=== PATIENT | male | born 1945 | race African-American/Black ===

== ENCOUNTER 2018-07-25 08:22 | Observation (INO) | payer MEDICARE ==
[~2018-07-25] VITALS: Ht 180.3 cm; Wt 126.8 kg
[~2018-07-25 08:22] MED LIST: ACETAMINOPHEN PO; ALLOPURINOL100 MG PO; ALPRAZOLAM0.5 MG PO; ASPIR 8181 MG PO; BACLOFEN10 MG PO; FUROSEMIDE40 MG PO; GABAPENTIN600 MG PO; NIFEDIPINE ER60 MG PO; OMEPRAZOLE40 MG PO; POTASSIUM CHLO20 ME1 PO; REQUIP XL2 MG PO; TERAZOSIN HCL1 MG PO; TRIAMCINOLONE A15 G4 TP; VITAMIN B12 PO; VITAMIN D3 PO; ZYRTEC10 MG PO
--- OUTSIDE RECORDS SUMMARY | 2018-07-25 08:25 | XMS REPORT | Clinical Summary ---
Author Author [facility] [place] [facility] Address Unknown Phone Unavailable Care Team Providers Care Tube Test Technician Name Role Phone Yasmani Dang MD PCP Allergies Comments Active Allergy Reactions Severity Noted Date Penicillins Rash Low 10/18/2016 Medications End Date Status Medication Sig Dispensed Refills Start Date Active allopurinol (ZYLOPRIM) Take 100 mg 0 100 MG tablet by mouth 7 daily. Active ALPRAZolam (XANAX) 0.5 MG Take 0.5 mg 0 tablet by mouth 3 7 (three) times a day. Active baclofen (LIORESAL) 10 MG Take 10 mg by 0 tablet mouth 2 (two) 7 times a day. Active furosemide (LASIX) 40 mg Take 40 mg by 0 tablet mouth 2 (two) 7 times a day. Active HYDROcodone-acetaminophen Take 1 tablet 0 (NORCO) 10-325 mg per by mouth 2 7 tablet (two) times a day as needed. Active KLOR-CON M20 20 mEq CR Take 20 mEq 0 tablet by mouth 7 daily. Active rOPINIRole (REQUIP) 2 MG Take 2 mg by 0 tablet mouth 7 nightly. Active terazosin (HYTRIN) 2 MG Take 2 mg by 0 capsule mouth 7 nightly. Active traZODone (DESYREL) 100 Take 100 mg 0 09/13/ MG tablet by mouth 7 nightly. Active aspirin (ECOTRIN) 81 MG Take 81 mg by 0 enteric coated tablet mouth 2 (two) times a day. Active lansoprazole (PREVACID) Take 30 mg by 0 30 MG capsule mouth daily. Active triamcinolone (KENALOG) Apply 1 0 0.1 % ointment application topically 2 (two) times a day. Active cholecalciferol, vitamin Take 2,000 0 D3, (VITAMIN D3) 1,000 Units by unit capsule mouth daily. Active temazepam (RESTORIL) 7.5 Take 7.5 mg 0 MG capsule by mouth nightly as needed for sleep. Active multivitamin with Take 1 tablet 0 minerals tablet by mouth daily. Active cyanocobalamin 500 MCG Take 500 mcg 0 tablet by mouth daily. Active amitriptyline (ELAVIL) 50 Take 50 mg by 0 MG tablet mouth nightly. Active gabapentin (NEURONTIN) Take 300 mg 0 300 mg capsule by mouth 2 (two) times a day. Active NIFEdipine CC (ADALAT CC) Take 60 mg by 0 60 MG 24 hr tablet mouth daily. Active Problems Problem Noted Date Closed displaced spiral fracture of shaft of left femur 04/18/2017 Encounters Care Team Description Date Type Specialty Roger Fountain MD Enlarged prostate with urinary obstruction (Primary Dx) 06/04/2018 Transcribe Access Orders after 07/24/2017 Family History Medical History Relation Name Comments Heart attack Father Asthma Mother Diabetes Mother Other Mother heart problems Relation Name Status Comments Father unknown Mother Social History Date Tobacco Use Types Packs/Day Years Used Never Smoker Smokeless Tobacco: Never Used Alcohol Use Drinks/Week oz/Week Comments No Sex Assigned at Date Recorded Not on file Industry Job Start Date Occupation Not on file Not on file Not on file Travel End Travel History Travel Start No recent travel history available. Last Filed Vital Signs Not on file Plan of Treatment Health Maintenance Due Date Last Done Comments COLON CANCER SCREENING 06/22/1995 SHINGLES VACCINES (#1) 06/22/1995 65+ PNEUMOCOCCAL VACCINE 2010 (1 of 2 - PCV13) PNEUMOCOCCAL 2010 POLYSACCHARIDE VACCINE AGE 65 AND OVER INFLUENZA VACCINE 11/08/2018 Implants Device Identifier Shelf Expiration Date Model / Serial / Lot Implanted Type Area Manufactur er 06/07/2021 04 013 [id number] / / [id number] 13mm Ti Joby Retro/Antegrade IPM Left: Femur SYNTHES Femoral Nail-Ex/420mm-Sterile - IMPLANT TRAUMA [id number] DEVICES Implanted: 04/19/2017 (Quantity not on file) 08/08/2023 04 005 550S / / [id number] 5.0mm Ti Locking Screw W/T25 IPM Left: Femur SYNTHES Stardrive 60mm F/Im Nail-Ster - IMPLANT TRAUMA [id number] DEVICES Implanted: 04/19/2017 (Quantity not on file) 08/07/2024 04 005 548S / / [id number] 5.0mm Ti Locking Screw W/T25 IPM Left: Femur SYNTHES Stardrive 58mm F/Im Nail-Ster - IMPLANT TRAUMA [id number] DEVICES Implanted: 04/19/2017 (Quantity not on file) Procedures Comments Procedure Name Priority Date/Time Associated Diagnosis US RENAL Routine 07/03/2018 Enlarged prostate with 2:47 PM CDT urinary obstruction US PROSTATE Routine 07/03/2018 Enlarged prostate with 2:46 PM CDT urinary obstruction after 07/24/2017 Results * US Renal (07/03/2018 2:47 PM CDT) Narrative Performed At [facility] CLINICAL HISTORY:N40.1 Benign prostatic hyperplasia with lower urinary tract symptoms, N13.8 Other obstructive and reflux uropathy, ENLARGED PROSTATE COMPARISON:None. IMPRESSION: The right kidney izptubmn33.7 cm in length. The left kidney doaknyiz91.0 cm in length. There is a 3.9 cm cyst in the left kidney. There is no solid mass, stone, or hydronephrosis. Echogenicity is increased, compatible with medical renal disease. Prevoid bladder volume is 111.3 cc. Postvoid volume is 6.9 cc. [id number] Procedure Note Interface, Radiology Results [facility] - 07/03/2018 2:59 PM CDT EXAMINATION: US RENAL CLINICAL HISTORY: N40.1 Benign prostatic hyperplasia with lower urinary tract symptoms, N13.8 Other obstructive and reflux uropathy, ENLARGED PROSTATE COMPARISON: None. IMPRESSION: The right kidney measures 11.7 cm in length. The left kidney measures 12.0 cm in length. There is a 3.9 cm cyst in the left kidney. There is no solid mass, stone, or hydronephrosis. Echogenicity is increased, compatible with medical renal disease. Prevoid bladder volume is 111.3 cc. Postvoid volume is 6.9 cc. [id number] Performing Organization Address City/State/Zipcode Phone Number [facility] [address] [place] [address] * US Prostate (07/03/2018 2:46 PM CDT) Narrative Performed At EXAMINATION:US PROSTATE [facility] CLINICAL HISTORY:N40.1 Benign prostatic hyperplasia with lower urinary tract symptoms, N13.8 Other obstructive and reflux uropathy, N40.1 COMPARISON:None. IMPRESSION: Prostate gland measures 6.0 x 3.9 x 4.6 cm. Volume is 56 cc. Transitional zone is slightly enlarged and heterogeneous compatible with BPH. There is no focal peripheral zone abnormality. Seminal vesicles are sonographically normal. [id number] Procedure Note Hm Interface, Radiology Results Incoming - 07/03/2018 2:58 PM CDT EXAMINATION: US PROSTATE CLINICAL HISTORY: N40.1 Benign prostatic hyperplasia with lower urinary tract symptoms, N13.8 Other obstructive and reflux uropathy, N40.1 COMPARISON: None. IMPRESSION: Prostate gland measures 6.0 x 3.9 x 4.6 cm. Volume is 56 cc. Transitional zone is slightly enlarged and heterogeneous compatible with BPH. There is no focal peripheral zone abnormality. Seminal vesicles are sonographically normal. [id number] Performing Organization Address City/State/Zipcode Phone Number [facility] [address] [place] [address] after 07/24/2017 Insurance Payer Benefit Subscriber ID Type Phone Address Plan / Group MEDICARE MEDICARE xxxxxxxxxxx Medicare [place], [place] PART A AND B Advance Directives Patient has advance care planning documents on file. For more information, abi cavanaugh contact: Sherif Maxwell [address] [place] [address]
[2018-07-25] MEDS ORDERED: HYOSCYAMINE 0.125 MG TAB ONE (08:56)
[2018-07-25] MEDS ORDERED: LEVOFLOXACIN 500MG/D5W 100ML 100 ML IV ONE (08:56)
[2018-07-25] MEDS ORDERED: NORCO 10-325 T1 EACH PO (09:22)
[2018-07-25] MEDS ORDERED: IOPAMIDOL 610MG/1ML 300 MG/ML VIAL IV ONE (09:32)
--- NOTE | 2018-07-25 10:24 | Diagnostic Imaging Report ---
EXAMINATION: PA and lateral views of the chest. COMPARISON: None CLINICAL HISTORY: Preoperative examination for prostate surgery DISCUSSION: The lungs are well-inflated. Linear opacities in the left lung base compatible with subsegmental atelectasis. No airspace consolidation, pleural effusion, or pneumothorax. Tortuous thoracic aorta with otherwise normal cardiomediastinal contour. No acute osseous abnormality. Nodular opacities project over the lung bases on the frontal radiograph, compatible with nipple shadows. IMPRESSION: Subsegmental atelectasis in the left lung base. Otherwise no acute cardiopulmonary abnormality. Signed by: Dr. Payam Madrigal M.D. on 07/25/2018 10:21 AM
[2018-07-25] MEDS ORDERED: FENTANYL CITRATE/PF 100MCG/2 ML INJ ONE ×2 (11:44→14:12)
[2018-07-25] MEDS ORDERED: MORPHINE SULFATE INJ 4 MG/ML INJ 1ML ONE (12:11)
--- OUTSIDE RECORDS SUMMARY | 2018-07-25 12:25 | XMS REPORT | Clinical Summary ---
Author Author [facility] Address Unknown Phone Unavailable Care Team Providers Care Medical Microbiologist Name Role Phone Yasmani Dang MD PCP [...] er 06/07/2021 04 013 [id number] / / [id number] 13mm Ti Joby Retro/Antegrade IPM Left: Femur SYNTHES Femoral Nail-Ex/420mm-Sterile - IMPLANT TRAUMA [id number] DEVICES Implanted: 04/19/2017 (Quantity not on file) 08/08/2023 04 005 550S / / [id number] 5.0mm Ti Locking Screw W/T25 IPM Left: Femur SYNTHES Stardrive 60mm F/Im Nail-Ster - IMPLANT TRAUMA [id number] DEVICES Implanted: 04/19/2017 (Quantity not on file) 08/07/2024 04 005 548S / / [id number] 5.0mm Ti Locking Screw W/T25 IPM Left: Femur SYNTHES Stardrive 58mm F/Im Nail-Ster - IMPLANT TRAUMA [id number] DEVICES Implanted: 04/19/2017 (Quantity not on file) Procedures Comments Procedure Name Priority Date/Time Associated Diagnosis US RENAL Routine 07/03/2018 Enlarged prostate with 2:47 PM CDT urinary obstruction US PROSTATE Routine 07/03/2018 Enlarged prostate with 2:46 PM CDT urinary obstruction after 07/24/2017 Results * US Renal (07/03/2018 2:47 PM CDT) Narrative Performed At [facility] CLINICAL HISTORY:N40.1 Benign prostatic hyperplasia with lower urinary tract symptoms, N13.8 Other obstructive and reflux uropathy, ENLARGED PROSTATE COMPARISON:None. IMPRESSION: The right kidney htzzwdic06.7 cm in length. The left kidney expvpcvc43.0 cm in length. There is a 3.9 cm cyst in the left kidney. There is no solid mass, stone, or hydronephrosis. Echogenicity is increased, compatible with medical renal disease. Prevoid bladder volume is 111.3 cc. Postvoid volume is 6.9 cc. [id number] Procedure Note Interface, Radiology Results [facility] - 07/03/2018 2:59 PM CDT EXAMINATION: US [...] 111.3 cc. Postvoid volume is 6.9 cc. [id number] Performing Organization Address City/State/Zipcode Phone Number [facility] [address] [place] [address] * US Prostate (07/03/2018 2:46 PM CDT) [...] zone abnormality. Seminal vesicles are sonographically normal. [id number] Procedure Note Hm Interface, Radiology Results Incoming [...] zone abnormality. Seminal vesicles are sonographically normal. [id number] Performing Organization Address City/State/Zipcode Phone Number [facility] [address] [place] [address] after 07/24/2017 Insurance Payer Benefit Subscriber ID Type Phone Address Plan / Group MEDICARE MEDICARE xxxxxxxxxxx Medicare [place], [place] PART A AND B Advance Directives Patient has advance care planning documents on file. For more information, abi cavanaugh contact: Sherif Maxwell [address] [place] [address]
--- OUTSIDE RECORDS SUMMARY | 2018-07-25 12:25 | XMS REPORT ---
Author Author [facility] Address Unknown Phone Unavailable Care Team Providers Care Podiatric Aide Name Role Phone Chasity TREVINO Unavailable Unavailable Problems This patient has no known problems. Allergies, Adverse Reactions, Alerts This patient has no known allergies or adverse reactions. Medications This patient has no known medications. Results Test Description Test Time Test Comments Text Results Atomic Results Result Comments CHEST 2 VIEWS 2018-07-25 10:19:00 [place] [address] Patient Name: BRIANNA MONTOYA JR MR #: [id number] : 1945 Age/Sex: 73/M Req #: [id number] [facility] [place]: Ordered by: KAREN TREVINO MD Report #: [id number] Location: OR Room/Bed: Procedure: [id number] DX/CHEST 2 VIEWS Exam Date: 07/25/18 Exam Time: 1000 REPORT STATUS: Signed EXAMINATION: PA and lateral views of the chest. COMPARISON: None CLINICAL HISTORY: Preoperative examination for prostate surgery DISCUSSION: The lungs are well-inflated. Linear opacities in the left lung base compatible with subsegmental atelectasis. No airspace consolidation, pleural effusion, or pneumothorax. Tortuous thoracic aorta with otherwise normal cardiomediastinal contour. No acute osseous abnormality. Nodular opacities project over the lung bases on the frontal radiograph, compatible with nipple shadows. IMPRESSION: Subsegmental atelectasis in the left lung base. Otherwise no acute cardiopulmonary abnormality. Signed by: Dr. Trung Madrigal M.D. on 07/25/2018 10:21 AM Dictated By: TRUNG MADRIGAL MD 1021 Transcribed By: DEISI on 07/25/18 1021 COPY TO: KAREN TREVINO MD
[2018-07-25] MEDS ORDERED: HYDROMORPHONE 2MG/ML 2 MG/ML ML ONE (12:30)
[2018-07-25 14:39] VITALS: BP 142/81
[2018-07-25 15:16] VITALS: BP 135/84
[2018-07-25 15:48] VITALS: BP 135/84
--- NOTE | 2018-07-25 15:57 | NUR ---
SOCIAL WORK INITIAL ASSESSMENT Wellness Nurse to bedside to discuss plan of care with patient/family. CM/SW role and care transitions discussed. Anticipated discharge plan discussed along with duration of care. CM/SW discussed patients right to make decisions in care. CM/SW work hours given. Patient lives: WITH Admit/Transfer: VIA FRONT FOR PROCEDURE POA/Emergency contact: MIRNA Current/Previous Home Health: NONE PCP/Follow-up Care: JOHN Current/Previous DME: [facility] Other Services: NA Employment Status: DISABLED Areas of Concerns: NONE Referral Needs: NONE Education Needs: NONE IMM/HUI given and signed (if applicable): UPON ADMISSION Goal for discharge: RETURN HOME CM/SW left business card at the bedside with contact information. Name and number was also written on the patients whiteboard. Patient verbalized understanding of discussion. CM will follow-up with ongoing discharge and transition of care needs.
[2018-07-25 16:27] VITALS: BP 135/84
--- NOTE | 2018-07-25 17:25 | Operative Report ---
DATE OF PROCEDURE: 07/25/2018 SURGEON: Roger Fountain MD PREOPERATIVE DIAGNOSES: 1. Benign prostatic hypertrophy. 2. Prostatic obstruction. POSTOPERATIVE DIAGNOSES: 1. Benign prostatic hypertrophy. 2. Prostatic obstruction. OPERATIONS: 1. Cystourethroscopy. 2. Transurethral resection of the prostate laser XPS. FLOAT NURSE: Dr. Johnson Burrows. ANESTHETIC: General. DESCRIPTION OF PROCEDURE: Mr. Andres is a 73-year-old male, who presented with a chief complaint of lower urinary tract obstructive symptoms and irritative symptoms in the form of weak stream, hesitancy, terminal dribbling, urgency, urge incontinence, nocturia, and enuresis. Workup showed an enlarged occlusive prostate gland. This patient was placed on the table in the lithotomy position, was prepped and draped in a sterile manner after satisfactory anesthesia. A #23-British cystoscope was used and cystourethroscopy was performed and confirmed the previous cystoscopic findings. The XPS laser scope generator was then started starting at 120 am calderon vaporization level and 40 calderon coagulation level. Vaporization of the prostate gland starting at 12 o'clock position starting at the bladder neck to just proximal to the verumontanum. Vaporization was then continued from the 11 to 7 o'clock, again starting at the bladder neck to just proximal to the verumontanum and down to the capsular fibers. Hemostasis was obtained all through and was very adequate. Vaporization of the prostate was then started from 1 to 5 o'clock, again starting at the bladder neck to just proximal to the verumontanum and down to the capsular fibers. Again, hemostasis was very adequate. At the termination of the procedure, the bladder mucosa, both urethral orifices, and external sphincter were intact without laser energy damage. The laser scope generator was shut down. The cystoresectoscope was removed and a #22-British Silverio catheter was placed on mild traction. Estimated blood losswas zero mL. Roger Fountain MD MA/JENA /[id number]
[2018-07-25] MEDS ORDERED: HYDROMORPHONE 1MG/1ML INJ IV PRN (18:00)
[2018-07-25] MEDS: LEVOFLOXACIN 500 MG TAB PO SCH (18:47)
[2018-07-25] MEDS: ONDANSETRON HCL INJ 2MG/ML 2ML 2 MG/ML VIAL IV PRN (19:37)
[2018-07-25] MEDS: HYDROMORPHONE 2MG/ML 2 MG/ML ML IV PRN (19:37)
--- NOTE | 2018-07-25 19:37 | NUR ---
PATIENT C/O PAIN TO THE PENIS WITH PAIN SCORE #5, MEDICATED WITH DILAUDID AND ZOFRAN ORDERED. DELAROSA CATHETER INTACT, CONTINUOUS BLADDER IRRIGATION INFUSING WITH URINE COLOR CLEAR YELLOW. CALL LIGHT WITHIN EASY REACH, PATIENT INSTRUCTED TO CALL FOR ASSISTANCE NEEDED.
[2018-07-25 20:00] VITALS: BP 156/72
[2018-07-25] MEDS ORDERED: DEXAMETHASONE SOD PHOS INJ 4 MG/ML VIAL ONE (20:13)
[2018-07-25] MEDS ORDERED: LIDOCAINE HCL 2% LOCAL INJ 5 ML SDV VIAL INJ ONE (20:13)
[2018-07-25] MEDS ORDERED: ONDANSETRON HCL INJ 2MG/ML 2ML 2 MG/ML VIAL ONE (20:13)
[2018-07-25] MEDS ORDERED: SEVOFLURANE INHAL SOLN 250 ML PEN BTL ONE (20:13)
[2018-07-25] MEDS ORDERED: PROPOFOL IV EMULSION 10 MG/ML 20 ML VIAL ONE (20:13)
[2018-07-26] VITALS: BP 157/77
--- NOTE | 2018-07-26 00:11 | NUR ---
PATIENT IS ASLEEP, HE'S EASY TO AROUSE. NO RESPIRATORY DISTRESS OBSERVED, HE DENIES PAIN. URINE COLOR REMAINS YELLOW WITH CBI INFUSING.
[2018-07-26 04:00] VITALS: BP 160/77
[2018-07-26] MEDS: HYDROMORPHONE 2MG/ML 2 MG/ML ML IV PRN (04:23)
[2018-07-26] MEDS: ONDANSETRON HCL INJ 2MG/ML 2ML 2 MG/ML VIAL IV PRN (04:23)
--- NOTE | 2018-07-26 04:26 | NUR ---
PATIENT ASSISTED WITH ADLS, NO RESPIRATORY DISTRESS OBSERVED. URINE COLOR LIGHT PINK, CONTINUOUS BLADDER IRRIGATION RATE INCREASE SLIGHTLY. PATIENT C/O PAIN TO THE PENIS WITH PAIN SCORE #3, MEDICATED WITH DILAUDID AND ZOFRAN ORDERED. CALL LIGHT WITHIN EASY REACH, HE'S INSTRUCTED TO CALL FOR ASSISTANCE NEEDED.
[2018-07-26 06:04] LABS: BASOPHILS % 0.2 % (0.0-1.0); EOSINOPHILS % 0.1 % (0.0-6.0); HEMATOCRIT 45.5 % (38.2-49.6); HEMOGLOBIN 14.9 g/dL (14.0-18.0); LYMPHOCYTES # (AUTO) 0.3 (1.0-3.2); LYMPHOCYTES % 3.4 % (18.0-39.1); MEAN CORPUSCULAR HEMOGLOBIN 29.4 pg (28-32); MEAN CORPUSCULAR HGB CONC 32.7 g/dL (31-35); MEAN CORPUSCULAR VOLUME 89.9 fL (81-99); MONOCYTES # (AUTO) 0.5 (0.2-0.8); MONOCYTES % 5.6 % (4.4-11.3); NEUTROPHILS # (AUTO) 7.9 (2.1-6.9); NEUTROPHILS % 90.4 % (38.7-80.0); PLATELET COUNT 128 x10e3/uL (140-360); RED BLOOD COUNT 5.06 x10e6/uL (4.3-5.7); RED CELL DISTRIBUTION WIDTH 14.6 % (11.7-14.4)
[2018-07-26 06:08] LABS: ANION GAP 12.5 mmol/L (8-16); CALCIUM 8.7 mg/dL (8.4-10.2); CREATININE, SERUM 2.19 mg/dL (0.72-1.25); POTASSIUM 4.5 mmol/L (3.5-5.1)
[2018-07-26 07:34] VITALS: BP 169/74
[2018-07-26] MEDS ORDERED: NON-FORMULARY MEDICATION (Cetirizine Hcl (Zyrtec) 10 MG) PO SCH (08:30)
[2018-07-26] MEDS ORDERED: NIFEDIPINE 120 MG PO SCH (09:00)
[2018-07-26] MEDS ORDERED: ALPRAZOLAM 0.5 MG TAB PO SCH (09:00)
[2018-07-26] MEDS ORDERED: CHOLECALCIFEROL 1,000 UNIT TAB PO SCH (09:00)
[2018-07-26] MEDS ORDERED: GABAPENTIN 300 MG CAP PO SCH (09:00)
[2018-07-26] MEDS ORDERED: BACLOFEN 10 MG TAB PO SCH (09:00)
[2018-07-26] MEDS ORDERED: LORATADINE 10 MG TAB PO SCH (09:00)
[2018-07-26] MEDS ORDERED: FUROSEMIDE 40 MG TAB PO SCH (09:00)
[2018-07-26] MEDS ORDERED: PANTOPRAZOLE SOD 40 MG TABEC PO SCH (09:00)
[2018-07-26] MEDS ORDERED: NON-FORMULARY MEDICATION (Gabapentin 600 MG) PO SCH (09:00)
[2018-07-26] MEDS ORDERED: ALLOPURINOL 100 MG TAB PO SCH (09:00)
[2018-07-26] MEDS ORDERED: TRIAMCINOLONE ACET 0.025% 15 GM CREAM TP SCH (09:00)
[2018-07-26] MEDS ORDERED: ONDANSETRON HCL 4 MG ORAL DISINTEGRATING TAB PO PRN (09:00)
[2018-07-26] MEDS ORDERED: ROPINIROLE HCL 2 MG PO SCH (09:00)
[2018-07-26] MEDS ORDERED: TERAZOSIN HCL 1 MG CAP PO SCH (09:00)
[2018-07-26] MEDS ORDERED: TRIAMCINOLONE ACETONIDE 15 GM TP SCH (09:00)
[2018-07-26] MEDS ORDERED: POTASSIUM CHLORIDE 20 MEQ TAB CR PO SCH (09:00)
[2018-07-26] MEDS ORDERED: NIFEDIPINE CR 30 MG TAB PO SCH (09:00)
[2018-07-26] MEDS ORDERED: ROPINIROLE HCL 1 MG TAB PO SCH (09:02)
--- NOTE | 2018-07-26 10:39 | NUR ---
Pt A&O x4, resp WNL, at bedside. Silverio in place, patent, drainage bag containing clear urine at this time. 2 bags hung at this time for CBI. IV to inner R forearm, patent, no s/s of redness or swelling to insertion site. Pt is blind in both eyes. Sunglasses on. Pt is able to state needs to staff. Pt took medications from home.
[2018-07-26 11:23] VITALS: BP 124/59
--- NOTE | 2018-07-26 11:50 | NUR ---
Nusrat EFRGUSON'ana maría at this time, per Dr. Guidry orders. After pt is due to void, Dr. Guidry gave orders to DC pt.
[2018-07-26 12:18] VITALS: BP 124/59
[2018-07-26 15:26] VITALS: BP 129/58
[2018-07-26] MEDS ORDERED: LEVAQUIN500 MG PO (16:05)
--- NOTE | 2018-07-26 17:04 | NUR ---
Pt voided at this time. No c/o burning or irritation during urination.
== END 2018-07-26 17:40 | disposition home or self-care (01) ==
LOC: OR 08:22 → PACU V 11:58 → IMCU 13:00
PROVIDERS: ADMIT Specialist; ATTEND Specialist
DX: N40.1 Benign prostatic hyperplasia with lower urinary tract symptoms (principal); N39.41 Urge incontinence; N13.8 Other obstructive and reflux uropathy; R39.11 Hesitancy of micturition; R35.1 Nocturia; R39.12 Poor urinary stream; Z88.0 Allergy status to penicillin
CPT/HCPCS: 36415; 52648; 71046; 80048; 85025; 93005; 96374; 96376; G0378 ×2; J1100; J1170 ×2; J1956; J2001; J2270; J2405 ×2; J2704